=== PATIENT | female | born 1985 | race African-American/Black ===

== ENCOUNTER → 2018-06-09 | Outpatient (CLI) | payer OTHER ==
[2018-06-09 11:15] LABS: CONTROL LINE HCG INT CTR LINE PRESENT; HCG, SERUM QUALITATIVE NEGATIVE (NEGATIVE)
[2018-06-09 13:21] LABS: GLUCOSE,RANDOM 85 MG/DL (LESS THAN 200)
[2018-06-12 11:47] LABS: FOLLICLE STIMULATING HORMONE 2.1 mIU/mL; LUTEINIZING HORMONE 1.7 mIU/mL; PROLACTIN 56.4 NG/ML
== END ==
LOC: M LAB 10:19
DX: N91.4 Secondary oligomenorrhea (principal)
CPT/HCPCS: 83001

== ENCOUNTER → 2018-06-22 | Outpatient (CLI) | payer OTHER | LOC: M RAD 10:04 | DX: N91.4 Secondary oligomenorrhea (principal); N85.4 Malposition of uterus | CPT/HCPCS: 76856 ==

== ENCOUNTER → 2018-06-28 | Outpatient (CLI) | payer OTHER ==
[2018-06-30 12:00] LABS: HEPATITIS B SURFACE ANTIGEN NEGATIVE (NEGATIVE)
[2018-07-08 11:04] LABS: HIV-1 RNA by PCR <20 copies/mL (NORMAL)
== END ==
LOC: M LAB 16:20
DX: Z11.3 Encounter for screening for infections with a predominantly sexual mode of transmission (principal)
CPT/HCPCS: 87340

== ENCOUNTER → 2018-08-24 | Outpatient (CLI) | payer OTHER ==
[2018-08-24 12:15] LABS: HCG, SERUM QUALITATIVE NEGATIVE (NEGATIVE)
[2018-08-24 12:18] LABS: ALT/SGPT 15 U/L (12-78); BILIRUBIN,TOTAL 0.3 MG/DL (0.2-1.0); BLOOD UREA NITROGEN 9 MG/DL (7-18); CALCIUM LEVEL 9.3 MG/DL (8.5-10.1); CARBON DIOXIDE LEVEL 28 MEQ/L (21-32); CHLORIDE LEVEL 104 MEQ/L (98-107); CHOLESTEROL LEVEL 183 MG/DL (<200); CREATININE FOR GFR 0.86 MG/DL (0.55-1.30); FREE T4 0.92 NG/DL (0.76-1.46); GLOMERULAR FILTRATION RATE > 60.0 (>60); GLUCOSE, FASTING 78 MG/DL (70-100); HDL CHOLESTEROL 60 MG/DL (>40); LDL CHOLESTEROL 112 MG/DL (<100); NON-HDL-C 123 MG/DL; POTASSIUM SERUM 4.4 MEQ/L (3.5-5.1); SODIUM LEVEL 136 MEQ/L (136-145); TOTAL PROTEIN 8.2 GM/DL (6.4-8.2); TRIGLYCERIDES LEVEL 57 MG/DL (<150)
[2018-08-24 12:20] LABS: FOLATE 15.3 NG/ML; VITAMIN B12 LEVEL 461 PG/ML
== END ==
LOC: M LAB 11:09
PROVIDERS: ATTEND Nurse Practitioner Family
DX: Z13.1 Encounter for screening for diabetes mellitus (principal); N91.4 Secondary oligomenorrhea; Z13.220 Encounter for screening for lipoid disorders; Z13.21 Encounter for screening for nutritional disorder

== ENCOUNTER 2018-12-14 11:14 | Emergency (ER) | payer OTHER ==
[~2018-12-14] VITALS: Ht 165.1 cm; Wt 81.3 kg
[2018-12-14] MEDS ORDERED: [UNRECOGNIZED DRUG - OTHER] (11:23)
[2018-12-14] MEDS ORDERED: LIDOCAINE VISCOUS 2% SOLN 15ML UDC MT ONE (12:00)
[2018-12-14] MEDS ORDERED: LIDOCAINE VISCOUS 2% SOLN 15ML UDC PO ONE (12:30)
[2018-12-14 13:01] VITALS: BP 123/79
== END 2018-12-14 13:05 | disposition home or self-care (01) ==
LOC: M ED 11:14
DX: S00.552A Superficial foreign body of oral cavity, initial encounter (principal); X58.XXXA Exposure to other specified factors, initial encounter; Y92.89 Other specified places as the place of occurrence of the external cause

== ENCOUNTER → 2019-03-01 | Outpatient (CLI) | payer OTHER ==
[~2019-03-01] MED LIST: [UNRECOGNIZED DRUG - OTHER]
== END ==
LOC: M LAB 12:05
PROVIDERS: ATTEND Obstetrics & Gynecology Obstetrics
DX: E22.1 Hyperprolactinemia (principal)

== ENCOUNTER → 2019-04-10 | Outpatient (REF) | payer OTHER | LOC: M SFHCPLAZ 12:08 | PROVIDERS: ATTEND Nurse Practitioner Family | DX: Z02.0 Encounter for examination for admission to educational institution (principal); E55.9 Vitamin D deficiency, unspecified ==

== ENCOUNTER → 2019-04-10 | Outpatient (CLI) | payer OTHER | LOC: M LAB 12:42 | PROVIDERS: ATTEND Nurse Practitioner Family | DX: Z02.0 Encounter for examination for admission to educational institution (principal); E55.9 Vitamin D deficiency, unspecified | CPT/HCPCS: 82306; 86480; G0463 ==